=== PATIENT | male | born 1995 | race Caucasian/White ===

== ENCOUNTER 2018-06-08 17:30 | Emergency (ER) | payer MEDICAID ==
[2018-06-08 18:08] LABS: BASOPHILS 0.2 % (0-2); HEMATOCRIT 44.3 % (42.0-54.0); HEMOGLOBIN 16.1 g/dL (13.5-17.5); IMMATURE GRANULOCYTES 0.2 % (0-5); LYMPHOCYTES 15.7 % (15-50); MCH 31.1 pg (26.0-34.0); MCHC 36.3 g/dL (31.0-37.0); MCV 85.7 fL (80.0-100.0); MEAN PLATELET VOLUME 11.2 fL (7.4-10.4); MONOCYTES 5.9 % (2-11); PLATELET COUNT 158 10x3/uL (130-400); RBC 5.17 10x6/uL (4.20-6.10); RDW 12.4 % (11.5-14.5); WBC 12.8 10x3/uL (4.8-10.8)
[2018-06-08 18:20] LABS: ALKALINE PHOSPHATASE 69 U/L (46-116); ALT (SGPT) 22 U/L (10-68); BILIRUBIN - TOTAL 1.38 mg/dL (0.2-1.3); CALC OSMOLALITY 279 mosm/kg (275-300); CALCIUM 8.8 mg/dL (8.5-10.1); CARBON DIOXIDE 26.6 mmol/L (21.0-32.0); CHLORIDE - SERUM 105 mmol/L (98-107); CREATININE - SERUM 0.8 mg/dL (0.6-1.3); GLUCOSE 100 mg/dL (74-106); POTASSIUM - SERUM 3.6 mmol/L (3.5-5.1); PROTEIN - SERUM 7.6 g/dL (6.4-8.2); SODIUM 140 mmol/L (136-145); UREA NITROGEN 14 mg/dL (7-18); eGFR NON AFRICAN AMERICAN > 90 mL/min (90-120)
[2018-06-08] MEDS ORDERED: ALBUTEROL SULF8.5 GM INH (19:09)
[2018-06-08] MEDS ORDERED: PHENERGAN DM SYR5 ML PO (19:10)
[2018-06-08] MEDS ORDERED: AMOXICILLIN500 M1 PO (19:10)
== END 2018-06-08 20:19 | disposition home or self-care (01) ==
LOC: D.ER 17:30
PROVIDERS: Emergency Medicine
DX: J06.9 Acute upper respiratory infection, unspecified (principal); J40 Bronchitis, not specified as acute or chronic